=== PATIENT | male | born 2000 | race Caucasian/White ===

== ENCOUNTER 2020-02-05 18:16 | Emergency (ER) | payer BC, SELFPAY ==
[2020-02-05 18:22] VITALS: BP 112/81; PULSE 120; RESP 16; TEMP 36.6; O2SAT 99; BMI 23.7
--- NOTE | 2020-02-05 18:25 | XRR_ITS ---
PROCEDURE INFORMATION: Exam: XR Right Knee Exam date and time: 02/05/2020 6:26 PM Age: 19 years old Clinical indication: Injury or trauma; Fall; Initial encounter; Blunt trauma; Knee; Right TECHNIQUE: Imaging protocol: XR Right knee. Views: 3 views. COMPARISON: No relevant prior studies available. FINDINGS: Bones/joints: There is no knee joint effusion. The joint spaces are maintained. No acute fracture or dislocation. No chondrocalcinosis. Soft tissues: There is debris in the soft tissues or along the skin surface distal anterior thigh and along the posterior and lateral aspect of the knee. There is no foreign body. Other findings: There is no intra-articular body. XR/XR knee RT 3V* [id number] IMPRESSION: 1. No acute bony abnormality. 2. There is debris in the soft tissues or along the skin surface distal anterior thigh and along the posterior and lateral aspect of the knee.
--- NOTE | 2020-02-05 19:05 | ED_ITS ---
HPI - Extremity Problem General: Chief complaint: Extremity Injury, Lower Stated complaint: R KNEE INJURY Time Seen by Provider: 02/05/20 18:25 History of Present Illness: HPI Narrative: Patient felt pain in his right knee while playing football today. He did get up and and was quite a backing and stand there just few seconds also on his right knee started hurting. MD Complaint: extremity pain Onset (ago): hour(s) Pain Consistency: constant Location: right and knee Severity scale (1-10): 5 Quality: aching Radiation: none Relieving factors: immobilization Exacerbating factors: range of motion Associated symptoms: Reports no associated symptoms; Deny chest pain, fever(s) or rash Review of Systems Const: Denies: fever, chills or body aches Eyes: Denies: change in vision or blurry vision ENMT: Denies: throat pain or nasal congestion Card: Denies: chest pain or shortness of breath on exertion Resp: Denies: shortness of breath, productive cough or non-productive cough GI: Denies: abdominal pain, nausea or vomiting : Denies: difficulty urinating Musc: Reports: extremity pain (Right knee) Skin/Breast: Denies: rash Neuro: Denies: headache Psych: Denies: anxiety or depression Teddy/Lymph: Denies: easy bruising PFSH ED PFSH: Social History Smoking and tobacco status: current every day smoker Physical Exam Const: COMMON NORMALS: no apparent distress, average body habitus and oriented x3 HENMT: COMMON NORMALS: normocephalic HEAD & SCALP: normal to inspection and normocephalic FACE & SINUS: normal facial exam Eye: COMMON NORMALS: conjunctivae normal GENERAL EYE: normal appearance of both eyes CONJUNCTIVA: Yes conjunctivae normal Neck/C-Spine: COMMON NORMALS: no JVD Chest: COMMONS NORMALS: inspection of chest normal Resp: COMMON NORMALS: normal respiratory effort and clear to auscultation bilaterally AUSCULTATION: clear to auscultation bilaterally Cardio: COMMON NORMALS: no JVD, regular rate and regular rhythm RATE: regular rate RHYTHM: regular rhythm GI: COMMON NORMALS: normal to inspection, nondistended, normoactive bowel sounds Extremity: COMMON NORMALS: normal to inspection RIGHT LOWER EXTREMITY: Yes knee joint (Has pain on hyperextension has pain to the medial joint line.) Neuro: COMMON NORMALS: oriented x3 Course Vital Signs: Vital signs: Vital Signs Temperature 97.8 F 02/05/20 20:10 Pulse Rate 64 02/05/20 20:10 Respiratory Rate 14 02/05/20 20:10 Blood Pressure 126/78 02/05/20 20:10 Pulse Oximetry 99 02/05/20 20:10 MDM - Extremity (Nontraumatic) MDM Narrative: Medical decision making narrative: Suspect possible meniscus tear or strain Discharge Plan Discharge Patient Disposition: Home, Self-Care Clinical Impression: Knee pain, right Qualifiers: Chronicity: acute Qualified Code(s): M25.561 - Pain in right knee Condition: Stable Prescriptions: New ketorolac 10 mg tablet 10 mg PO TID PRN (Reason: pain) 1 Days Qty: 10 RF: 0 Discharge Orders: Discharge Order (Routine); Ordered 02/05/20 Ordered By: Festus Messina Discharge Diet: Usual diet Discharge Activity: Increase activity as tolerated Patient Instructions: Knee Sprain (ED) Activity Restrictions/Additional Instructions: Follow-up with medical provider as directed. Take medications as prescribed. Return to the ER or your medical provider if condition worsens. Please read and understand discharge instructions. If any questions ask please. Follow-up with primary care doctor in [facility] if need be for an MRI. Can use crutches you have at home. No weightbearing if too painful. Discharge Date/Time: 02/05/20 19:16 Coding Level of Care Code ED Executive Consultant for Christine Fwd Exam Comprehensive
[2020-02-05] MEDS: TRAMadol 50 mg Tablet PO (19:13)
[2020-02-05 20:10] VITALS: BP 126/78; PULSE 64; RESP 14; TEMP 36.6; O2SAT 99
== END 2020-02-05 19:16 | disposition home or self-care (01) ==
PROVIDERS: Emergency Provider Nurse Practitioner Family
DX: M25.561 Pain in right knee (principal); F17.210 Nicotine dependence, cigarettes, uncomplicated; X50.9XXA Other and unspecified overexertion or strenuous movements or postures, initial encounter; Y93.61 Activity, american tackle football
CPT/HCPCS: 12345; 73562; 99281; 99283